=== PATIENT | male | born 1975 | race Two or more races ===

== ENCOUNTER 2022-06-01 16:06 | Emergency (ER) | payer MEDICAID, OTHER ==
[~2022-06-01] VITALS: Ht 172.7 cm; Wt 64.5 kg
[2022-06-01] MEDS ORDERED: NEOMYCIN/BACITRACIN/POLYMYXIN B OINTMENT PACKET TP ONE (17:45)
[2022-06-01] MEDS ORDERED: CEPH-558 PO (17:48)
[2022-06-01 17:49] VITALS: BP 129/76
== END 2022-06-01 19:37 | disposition home or self-care (01) ==
LOC: EMS 16:08
DX: S90.922A Unspecified superficial injury of left foot, initial encounter (principal); F17.210 Nicotine dependence, cigarettes, uncomplicated; F12.90 Cannabis use, unspecified, uncomplicated; X58.XXXA Exposure to other specified factors, initial encounter; Y93.89 Activity, other specified; Y92.89 Other specified places as the place of occurrence of the external cause; Y99.8 Other external cause status
CPT/HCPCS: 99283